=== PATIENT | female | born 1935 | race Caucasian/White ===

== ENCOUNTER 2017-01-08 14:11 | Inpatient (IN) | payer OTHER ==
[~2017-01-08] VITALS: Ht 167.6 cm; Wt 65.3 kg
--- NOTE | ~2017-01-08 | H ---
[facility] [place] [address] HISTORY AND PHYSICAL Name: VINCE CHISHOLM Room #: 444-P [facility] IN M.R.#: [id number] Admission: 01/08/17 Attend Phys: Sylvester Dalal MD Discharge: 01/12/17 Date of : 39 Report #: [id number] THIS REPORT FOR: //name// CC: Sylvester Leavitt DATE OF SERVICE: 01/08/2017 CHIEF COMPLAINT: Progressive shortness of breath and weakness. HISTORY OF PRESENT ILLNESS: The patient is a 81-year-old female with history of severe COPD, oxygen dependent and chronic respiratory failure, who comes to the hospital with progressive shortness of breath, weakness, and poor appetite. The patient was hospitalized here in November, and she was discharged to the senior care. She states that she was at the senior care for 15 days, and then she went home. The patient uses 3 liters of oxygen at night. She states the last few days, she became progressively short of breath and weak. She denies cough, sweating, wheezing, or other symptoms. PAST MEDICAL HISTORY: 1. Oxygen dependent COPD. 2. Hypertension. 3. Restless legs syndrome. 4. Anxiety. 5. Dyslipidemia. 6. History of GI bleed in 2013. CURRENT MEDICATIONS: Reviewed and documented in the patient's chart. Please refer to the medication reconciliation section. SOCIAL HISTORY: The patient quit smoking cigarettes about 6 years ago. She does not drink alcohol. REVIEW OF SYSTEMS: As above in HPI section, all others negative. PHYSICAL EXAMINATION: GENERAL: The patient is an elderly female who is in no apparent distress. She is alert and oriented x3. VITAL SIGNS: Her blood pressure is 139/63, heart rate is 130, respiration is 22, and temperature is 98.1. HEENT: Pupils are equal. Eye movements are normal. The patient has anicteric sclerae. NECK: Supple. She has no JVD. [facility] [address] [place] [address] HISTORY AND PHYSICAL Name: VINCE CHISHOLM [facility] Room #: 444-P [facility] IN ..#: [id number] Admission: 01/08/17 Attend Phys: Sylvester Dalal MD Discharge: 01/12/17 Date of : 39 Report #: [id number] RESPIRATORY: Respiratory sounds are diminished throughout. The patient has no wheezes or crackles. Chest moves symmetrically with breathing. CARDIOVASCULAR: The patient is tachycardic. She has no murmurs, gallops, or rubs. GASTROINTESTINAL: Abdomen is soft, nondistended, and nontender. Bowel sounds are normal. The patient has no hepatomegaly or splenomegaly. EXTREMITIES: The patient has no edema, cyanosis or clubbing. She has no joint deformities. Range of motion is normal. NEUROLOGIC: The patient is alert and oriented x3. Her examination is nonfocal. SKIN: The patient has no skin lesions. Skin is warm and dry. LABORATORY DATA: ABG showed pH 7.422, pCO2 of 55, and pO2 is 62. On metabolic profile, the patient has normal electrolytes and normal creatinine. Blood glucose randomly is 175. CBC shows mildly elevated white count at 11.1. Hemoglobin is 11.8, hematocrit is 36.8, and platelets 498. On chest x-ray, the patient has clear lungs. On EKG, the patient has sinus tachycardia. ASSESSMENT AND PLAN: 1. Chronic respiratory failure due to severe chronic obstructive pulmonary disease, hypoxemic and hypercarbic. Mild exacerbation. The patient probably has progression of the disease, and she is not in acute distress. We will start the patient on IV steroids and breathing treatments will be continued. I will ask business continuity planning director to evaluate the patient. She will likely need to be on continuous oxygen therapy. 2. Generalized weakness and debility. Physical therapist will be consulted. The patient may need to go back to the alf facility. 3. Hypertension. Acceptable control. 4. Sinus tachycardia, also observed during the previous hospitalization. The patient is asymptomatic. 5. Dyslipidemia. Lipitor will be continued unchanged. 6. Deep venous thrombosis prophylaxis. SubQ Lovenox. <ELECTRONICALLY SIGNED> By: Sylvester Dalal MD 01/13/17 1351 1825 1846 Sylvester Dalal MD /nt
--- NOTE | ~2017-01-08 | HC ---
[facility] [place] [address] CONSULTATION Name: VINCE CHISHOLM Room #: 444-P ADM IN M.R.#: [id number] Admission: 01/08/17 Attend Phys: Sylvester Dalal MD Discharge: Date of : 39 Report #: [id number] THIS REPORT FOR: //name// CC: Sylvester Leavitt PRIMARY CARE PHYSICIAN: Dr. Filiberto Leavitt. REFERRAL PHYSICIAN: Dr. Sylvester Dalal. REASON FOR REFERRAL: Dyspnea. HISTORY OF PRESENT ILLNESS: The patient is a 81-year-old white female who was brought to the Emergency Room with progressive dyspnea. A pulmonary consultation was requested. The patient has known COPD, she is oxygen dependent. She was most recently hospitalized about a month or so ago. [facility] she was discharged there about a week ago. The patient for COPD, she is on 2 liters of O2 chronically. She states that she was in her usual state of health until about a week ago when she started to develop progressive dyspnea. She also complains of poor appetite, apparently some weight loss and weakness. Otherwise, denies any chest pain, nausea, vomiting, diarrhea, or hemoptysis. PAST MEDICAL HISTORY: Notable for COPD, with chronic hypoxic respiratory failure on 2 liters of O2, hypertension, diverticulosis, history of ischemic colitis, gastroesophageal reflux disease, insomnia, anxiety, history of GI bleed in 2013. PAST SURGICAL HISTORY: Unremarkable. ALLERGIES: None to medications. HOME MEDICATIONS: Include Lipitor, Advair HFA 150 mcg 2 puffs twice a day, aspirin, Cardizem, Estrace, Mucinex, Protonix, laxative, Spiriva, Xopenex nebulized q. 6 hours p.r.n. She is on 2 liters of O2 chronically. FAMILY HISTORY: Noncontributory. SOCIAL HISTORY: She is , lives with her , she is retired. She has smoked most of her life until about 2009 when she quit. 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 REVIEW OF SYSTEMS: As mentioned above, otherwise 10-point system review negative. [facility] [address] [place] [address] CONSULTATION Name: VINCE CHISHOLM [facility] Room #: 444-P ADM IN M.R.#: [id number] Admission: 01/08/17 Attend Phys: Sylvester Dalal MD Discharge: Date of : 39 Report #: [id number] PHYSICAL EXAMINATION: GENERAL: She is awake, alert, appears weak in mild respiratory distress. VITAL SIGNS: Temperature is 97.5 degrees Fahrenheit, pulse is 88, respiratory rate is 20, blood pressure is 112/59 mmHg, saturation 97%. HEENT: Normocephalic, atraumatic. NECK: Supple, without lymphadenopathy or thyromegaly. CHEST: Breath sounds are decreased bilaterally with mild expiratory wheezes. No rales. CARDIOVASCULAR: Heart sounds are distant. No obvious murmurs or gallop. Pulses are 2+/4+ bilaterally. BREASTS: Exam deferred. ABDOMEN: Soft, nontender and moderately obese. No masses felt. GENITOURINARY: Deferred. RECTAL: Deferred. EXTREMITIES: There is no edema, cyanosis or clubbing. LABORATORY DATA: Chest x-ray was unremarkable. Electrolytes are normal. Liver function tests. WBC 11,100, hemoglobin 11.8, platelets are normal. Arterial blood gas revealed pH 7.42, pCO2 55, pO2 of 62 on 2-1/2 liters of O2. IMPRESSION: 1. Acute on chronic hypercapnic hypoxic respiratory failure in this 81-year-old white female due to exacerbation of COPD. Early respiratory tract infection cannot be ruled out. 2. Restless leg syndrome. 3. Hypertension. 4. Progressive deconditioned state with progressive debility and weakness. RECOMMENDATION: Agree with current treatment plans including bronchodilators and corticosteroids. While on systemic corticosteroids, inhaled steroids can be on hold. Broad-spectrum antibiotics will be recommended. DVT and GI prophylaxis will be initiated. Thank you for this consultation. <ELECTRONICALLY SIGNED> By: Eamon Dan MD 01/10/17 1409 1704 0029 Eamon Dan MD /nt
--- NOTE | ~2017-01-08 | EKG ---
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
[~2017-01-08 14:11] MED LIST: 8 HOUR PAIN RE650 M1 PO; ADVAIR 100-501 EACH; ADVAIR 500-501 EACH INH; ADVAIR HFA115 MCG/21 INH; ALBUTEROL2.5 MG/0.1; ALBUTEROL2.5 MG/31 INH; ALPRAZOLAM 0.0.25 M1 PO; ASPIR 8181 MG PO; ASPIRIN EC81 M1 PO; AZITHROMYCIN 2250 MG PO; BISACODYL SUPP10 MG; CALCIUM 600 +1 EAC1 PO; CARDIZEM CD300 MG PO; CIPRO500 MG PO; COMBIVENT INH; COMBIVENT RESPIM4 GM INH; DEEP SEA NASAL44 M1 INH; DILTIAZEM 24HR180 M2 PO; DILTIAZEM 24HR180 MG PO; DILTIAZEM 24HR240 MG; DULCOLAX10 MG RECTAL; ENOXAPARIN40 MG/0.1 SUBQ; ESTRACE1 TUBE VAG; FLAGYL500 MG PO; HYDROCODON-ACE1 EAC7; HYDROCODON-ACE1 EAC7 PO; LEVAQUIN 500 M500 M1; LEVAQUIN 500 M500 M4 PO; LIPITOR 20 MG T20 M1 PO; LISINOPRIL10 MG; LISINOPRIL20 MG PO; MAGONATE54 MG/5 ML; MILK OF MA2400 MG/10 PO; MIRAPEX0.125 MG PO; MOM; MUCINEX TA600 MG/TA2 PO; MUCINEX600 MG; NEXIUM40 MG PO; NORCO 5-325 TA1 EACH PO; NOVOLOG100 UNIT/1 SUBQ; NYSTATIN 1100000 U/M SW&SWALLOW; PHENERGAN 25 MG25 M1 PO; PREDNISONE 10 M10 MG PO; PREDNISONE 20 M20 MG; PREDNISONE 20 M20 MG PO; PREDNISONE 5 MG5 M1 PO; PRINIVIL20 MG PO; PROTONIX40 M4 PO; SENNA LAXATIVE8.6 MG PO; SENOKOT-S1 TA1 PO; SPIRIVA INH; SYMBICORT160 MCG/4.; SYMBICORT160 MCG/4. INH; TYLENOL325 MG PO; VITAMIN D 5050000 I1 PO; VITAMIN D-32000 UNIT PO; XOPENEX0.63 MG/3 INH; ZOCOR40 MG PO; ZPAK PO; [UNRECOGNIZED DRUG - OTHER] PO
[2017-01-08 14:12] VITALS: BP 126/76
[2017-01-08 14:30] LABS: ABG SAMPLE TYPE ARTERIAL; BE(vivo) 9.2 mmol/L (-2 to +3); HCO3 35.4 mmol/L (22.0-26.0); LACTATE 1.32 mmol/L (0.5-2.0); O2(CT) 16.1 mL/dL (15.0-23.0); O2Hb 91.6 % (92.0-98.0); PCO2 55.5 mmHg (35.0-45.0); PO2 62.5 mmHg (80.0-100.0); STICK SITE L.RADIAL; pH 7.422 (7.360-7.450); sO2 91.9 % (92.0-98.0); tCO2 37.1 mmol/L (24.0-30.0)
[2017-01-08 14:34] LABS: ABSOLUTE NEUTROPHILS 8.8 thou/uL (1.4-8.2); BASOPHILS 0.5 % (0.0-2.0); EOSINOPHILS 0.9 % (0.0-3.0); HEMATOCRIT 36.7 % (37.0-47.0); HEMOGLOBIN 11.8 gm/dL (12.0-15.0); LYMPHOCYTES 13.7 % (24.0-44.0); MCH 28.4 pg (26.0-34.0); MCV 88.6 fL (80.0-100.0); MONOCYTES 5.8 % (1.0-8.0); PLATELET COUNT 498 thou/uL (150-400); POLYS 79.1 % (36.0-66.0); RBC 4.14 mil/uL (4.20-5.00); RDW 14.3 % (10.5-14.5); WBC 11.1 thou/uL (4.0-11.0)
[2017-01-08 14:36] LABS: MANUAL DIFF NO
[2017-01-08 15:00] LABS: CALCIUM 9.3 mg/dL (8.5-10.1); CREATININE 0.7 mg/dL (0.6-1.3); POTASSIUM 4.1 mmol/L (3.5-5.1)
[2017-01-08 16:03] VITALS: BP 111/41
[2017-01-08 16:45] VITALS: BP 139/67
[2017-01-08 20:05] VITALS: BP 101/52
[2017-01-08 23:29] VITALS: BP 139/58
[2017-01-09 03:41] VITALS: BP 102/54
[2017-01-09 05:26] LABS: ABSOLUTE NEUTROPHILS 3.9 thou/uL (1.4-8.2); BASOPHILS 0.7 % (0.0-2.0); EOSINOPHILS 0.1 % (0.0-3.0); HEMATOCRIT 30.1 % (37.0-47.0); MCH 28.6 pg (26.0-34.0); MCHC 32.5 g/dL (28.0-37.0); MCV 88.1 fL (80.0-100.0); MONOCYTES 0.3 % (1.0-8.0); POLYS 84.9 % (36.0-66.0); RBC 3.41 mil/uL (4.20-5.00); RDW 14.3 % (10.5-14.5); WBC 4.6 thou/uL (4.0-11.0)
[2017-01-09 05:30] LABS: HEMOGLOBIN 9.8 gm/dL (12.0-15.0); MANUAL DIFF NO; PLATELET COUNT 346 thou/uL (150-400)
[2017-01-09 05:39] LABS: CALCIUM 8.4 mg/dL (8.5-10.1); CREATININE 0.6 mg/dL (0.6-1.3)
[2017-01-09 06:08] LABS: GLYCOHEMOGLOBIN (HGB A1C) 6.2 % (4.8-5.6)
[2017-01-09 08:01] VITALS: BP 103/48
[2017-01-09 12:16] VITALS: BP 121/46
[2017-01-09 16:09] VITALS: BP 112/59
[2017-01-09 19:20] VITALS: BP 108/48
[2017-01-10 04:30] VITALS: BP 111/47
[2017-01-10 06:18] LABS: HEMATOCRIT 28.8 % (37.0-47.0); HEMOGLOBIN 8.9 gm/dL (12.0-15.0); MCH 27.7 pg (26.0-34.0); MCHC 30.8 g/dL (28.0-37.0); MCV 89.9 fL (80.0-100.0); PLATELET COUNT 336 thou/uL (150-400); RBC 3.21 mil/uL (4.20-5.00); RDW 14.4 % (10.5-14.5)
[2017-01-10 06:20] LABS: MANUAL DIFF YES
[2017-01-10 06:21] LABS: WBC 28.5 thou/uL (4.0-11.0)
[2017-01-10 06:30] LABS: CALCIUM 8.6 mg/dL (8.5-10.1); CREATININE 0.7 mg/dL (0.6-1.3); POTASSIUM 4.5 mmol/L (3.5-5.1)
[2017-01-10 08:05] VITALS: BP 128/52
[2017-01-10 08:07] LABS: ABSOLUTE NEUTROPHILS 27.9 thou/uL (1.4-8.2); TOTAL CELL COUNT 100
[2017-01-10 08:08] LABS: ANISOCYTOSIS SLIGHT; HYPOCHROMASIA 1+; POIKILOCYTOSIS SLIGHT; POLYCHROMASIA SLIGHT
[2017-01-10 12:07] VITALS: BP 132/61
[2017-01-10 15:50] LABS: % SATURATION 17 % (20-39); IRON 40 ug/dL (50-170); TIBC 233 ug/dL (250-450); UIBC 193 ug/dL
[2017-01-10 16:20] VITALS: BP 110/46
[2017-01-10 17:05] LABS: ABG SAMPLE TYPE ARTERIAL; BE(vivo) 3.9 mmol/L (-2 to +3); HCO3 30.7 mmol/L (22.0-26.0); LACTATE 2.64 mmol/L (0.5-2.0); O2(CT) 12.7 mL/dL (15.0-23.0); PCO2 58.4 mmHg (35.0-45.0); PO2 62.3 mmHg (80.0-100.0); pH 7.338 (7.360-7.450); tCO2 32.5 mmol/L (24.0-30.0)
[2017-01-10 17:06] LABS: STICK SITE R.RADIAL
[2017-01-10 20:10] VITALS: BP 137/45
[2017-01-11 03:50] VITALS: BP 113/50
[2017-01-11 05:38] LABS: HEMATOCRIT 28.8 % (37.0-47.0); HEMOGLOBIN 9.1 gm/dL (12.0-15.0); MCH 28.1 pg (26.0-34.0); MCHC 31.6 g/dL (28.0-37.0); MCV 88.7 fL (80.0-100.0); RBC 3.24 mil/uL (4.20-5.00); RDW 14.5 % (10.5-14.5); WBC 27.3 thou/uL (4.0-11.0)
[2017-01-11 05:44] LABS: MANUAL DIFF YES
[2017-01-11 05:48] LABS: CALCIUM 8.8 mg/dL (8.5-10.1); CREATININE 0.7 mg/dL (0.6-1.3); POTASSIUM 4.9 mmol/L (3.5-5.1)
[2017-01-11 08:00] VITALS: BP 135/72
[2017-01-11 08:01] LABS: ABSOLUTE NEUTROPHILS 25.9 thou/uL (1.4-8.2); PLATELET COUNT 273 thou/uL (150-400); TOTAL CELL COUNT 100
[2017-01-11 08:02] LABS: PLATELET ESTIMATE NORMAL
[2017-01-11 08:03] LABS: ANISOCYTOSIS SLIGHT
[2017-01-11 08:04] LABS: HYPOCHROMASIA SLIGHT
[2017-01-11 12:00] VITALS: BP 148/65
[2017-01-11 16:00] VITALS: BP 130/56
[2017-01-11 20:10] VITALS: BP 122/53
[2017-01-12 04:38] LABS: HEMATOCRIT 29.6 % (37.0-47.0); HEMOGLOBIN 9.3 gm/dL (12.0-15.0); MCH 28.1 pg (26.0-34.0); MCHC 31.5 g/dL (28.0-37.0); MCV 89.4 fL (80.0-100.0); PLATELET COUNT 347 thou/uL (150-400); RBC 3.31 mil/uL (4.20-5.00); RDW 14.7 % (10.5-14.5); WBC 21.4 thou/uL (4.0-11.0)
[2017-01-12 04:48] LABS: MANUAL DIFF YES
[2017-01-12 07:56] LABS: ABSOLUTE NEUTROPHILS 20.3 thou/uL (1.4-8.2); PLATELET ESTIMATE NORMAL; TOTAL CELL COUNT 100
[2017-01-12 08:00] VITALS: BP 141/69
[2017-01-12] MEDS ORDERED: IRON325 PO (10:37)
[2017-01-12] MEDS ORDERED: HYDROCODON-ACE1 EAC7 PO (10:37)
[2017-01-12] MEDS ORDERED: ALPRAZOLAM 0.0.25 M1 PO (10:38)
[2017-01-12 12:10] VITALS: BP 141/69
[2017-01-12] MEDS ORDERED: MEDROL DOSPAK21 TA1 PO (12:30)
[2017-01-12 12:57] VITALS: BP 141/69
== END 2017-01-12 14:30 | disposition home health service (06) | DRG 189 ==
LOC: ER 14:11 → EROBS 15:30 → 4S 15:30 → EROBS 16:05 → 4S 16:05
PROVIDERS: Emergency Medicine; Internal Medicine; Internal Medicine Endocrinology, Diabetes & Metabolism
DX: J96.21 Acute and chronic respiratory failure with hypoxia (principal); J44.1 Chronic obstructive pulmonary disease with (acute) exacerbation; J96.22 Acute and chronic respiratory failure with hypercapnia; D64.9 Anemia, unspecified; E78.5 Hyperlipidemia, unspecified; I10 Essential (primary) hypertension; G25.81 Restless legs syndrome; R00.0 Tachycardia, unspecified; N28.9 Disorder of kidney and ureter, unspecified; E66.9 Obesity, unspecified; K21.9 Gastro-esophageal reflux disease without esophagitis; F41.9 Anxiety disorder, unspecified; G47.00 Insomnia, unspecified; M19.90 Unspecified osteoarthritis, unspecified site; K57.90 Diverticulosis of intestine, part unspecified, without perforation or abscess without bleeding; Z79.82 Long term (current) use of aspirin; Z68.23 Body mass index [BMI] 23.0-23.9, adult; Z87.891 Personal history of nicotine dependence; Z99.81 Dependence on supplemental oxygen; Z79.899 Other long term (current) drug therapy
CPT/HCPCS: 10100